=== PATIENT | male | born 1995 | race African-American/Black ===

== ENCOUNTER 2018-07-14 19:45 | Emergency (ER) | payer OTHER ==
[~2018-07-14] VITALS: Ht 170.2 cm; Wt 68.0 kg
[2018-07-14] MEDS ORDERED: MOBIC7.5 MG PO (20:55)
[2018-07-14 21:06] VITALS: BP 115/51
== END 2018-07-14 21:06 | disposition home or self-care (01) ==
LOC: ER 19:45
DX: S09.90XA Unspecified injury of head, initial encounter (principal); V89.2XXA Person injured in unspecified motor-vehicle accident, traffic, initial encounter; Y93.I9 Activity, other involving external motion; Y92.410 Unspecified street and highway as the place of occurrence of the external cause; Y99.8 Other external cause status